=== PATIENT | female | born 1990 | race Caucasian/White ===

== ENCOUNTER 2021-03-19 23:39 | Emergency (ER) | payer SELFPAY ==
[2021-03-20 00:35] LABS: HEMOGLOBIN 12.8 gm/dl (12.3-15.3); RED BLOOD COUNT 4.96 M/UL (4.00-5.10)
[2021-03-20 00:59] LABS: BUN/CREATININE RATIO 10 (0-10)
[2021-03-20] MEDS ORDERED: REGLAN5 MG PO (02:26)
== END 2021-03-20 02:38 | disposition home or self-care (01) ==
LOC: ER1 23:39
PROVIDERS: Student in an Organized Health Care Education/Training Program
DX: R51.9 Headache, unspecified (principal)
CPT/HCPCS: 70450; 80053; 84702; 85025; 99284

== ENCOUNTER 2021-06-27 14:23 | Emergency (ER) | payer BC ==
[~2021-06-27 14:23] MED LIST: REGLAN5 MG PO
[2021-06-27] MEDS ORDERED: AUGMENTIN 875-1 EACH PO (16:51)
[2021-06-27] MEDS ORDERED: SUDAFED 30 MG T30 MG PO (16:54)
[2021-06-27] MEDS ORDERED: IBUPROFEN600 MG PO (16:54)
== END 2021-06-27 17:39 | disposition home or self-care (01) ==
LOC: ER1 14:23
DX: J02.9 Acute pharyngitis, unspecified (principal); Z20.822 Contact with and (suspected) exposure to COVID-19; E78.5 Hyperlipidemia, unspecified; J45.909 Unspecified asthma, uncomplicated
CPT/HCPCS: 71045; 87081; 87880; 96372; 99284; J1100; J1885; U0002

== ENCOUNTER → 2021-08-28 | Outpatient (CLI) | payer BC ==
[~2021-08-28] MED LIST changes: +AUGMENTIN 875-1 EACH PO; +IBUPROFEN600 MG PO; +SUDAFED 30 MG T30 MG PO
== END ==
LOC: KOH-I 14:35
DX: J20.9 Acute bronchitis, unspecified (principal); R06.02 Shortness of breath
CPT/HCPCS: 71046

== ENCOUNTER 2021-09-08 18:36 | Emergency (ER) | payer BC ==
[~2021-09-08] VITALS: Ht 162.6 cm; Wt 98.0 kg
[2021-09-08 20:13] LABS: HEMOGLOBIN 13.5 gm/dl (12.3-15.3); RED BLOOD COUNT 5.19 M/UL (4.00-5.10); WHITE BLOOD COUNT 10.2 K/UL (4.5-11.0)
[2021-09-08 20:48] LABS: BUN/CREATININE RATIO 11 (0-10)
[2021-09-09] MEDS ORDERED: PREDNISONE20 MG PO (00:19)
== END 2021-09-09 00:20 | disposition home or self-care (01) ==
LOC: ER1 18:36
PROVIDERS: Family Medicine
DX: U07.1 COVID-19 (principal); R73.9 Hyperglycemia, unspecified; J45.909 Unspecified asthma, uncomplicated
CPT/HCPCS: 36600; 71045; 80048; 82550; 82553; 82803; 83605; 84484; 85025; 85379; 86140; 93005; 94664; 96374; 99285; J2930; U0002